=== PATIENT | male | born 1965 ===

== ENCOUNTER 2020-09-24 13:22 | Outpatient (CLI) | payer MEDICAID ==
[~2020-09-24] VITALS: Ht 188 cm; Wt 97.5 kg
--- NOTE | 2020-09-28 18:14 | Consultation ---
DATE OF CONSULTATION: 09/24/2020 CHIEF COMPLAINT: Referral for chronic GERD. HISTORY OF PRESENT ILLNESS: This is a 54-year-old male who was referred to us for chronic GERD. Apparently, not responding to aloj-fmi-ongxmxt medication. PAST MEDICAL HISTORY: 1. GERD. 2. Depression. 3. Gastritis. 4. Hiatal hernia. 5. Left knee pain. PAST SURGICAL HISTORY: 1. Alan fundoplication. 2. Hernia repair. MEDICATIONS: Please see medication reconciliation list. FAMILY HISTORY: Noncontributory. SOCIAL HISTORY: The patient drinks alcohol occasionally. Denies IV drug abuse. Denies any tobacco abuse. ALLERGIES: No known allergies. REVIEW OF SYSTEMS: Positive for chronic GERD and patient had Alan fundoplication in 2016. PHYSICAL EXAMINATION: VITAL SIGNS: Temperature 96.8, blood pressure is 122/77, pulse 79, respirations 20. HEENT: Normocephalic and atraumatic. Sclerae anicteric. NECK: Supple. No evidence of obvious lymphadenopathy. CARDIOVASCULAR: Regular rate and rhythm. Plus S1, S2. LUNGS: Clear to auscultation bilaterally. ABDOMEN: Positive bowel sounds. Soft and nontender. No rebound. No guarding. No peritoneal sign. EXTREMITIES: No cyanosis, no clubbing, no edema. ASSESSMENT AND PLAN: This is a 54-year-old male with history of Alan fundoplication, now has recurrent symptoms of GERD. The patient needs endoscopy to see if intact. We will schedule him as soon as authorization is obtained. The patient also needs a colonoscopy which we will discuss in the next visit. Gurpreet Machado M.D. DR: Vee JOB#: [id number] CC:
== END 2020-09-24 14:36 | disposition home or self-care (01) ==
LOC: PAN 13:22
DX: K21.9 Gastro-esophageal reflux disease without esophagitis (principal)
CPT/HCPCS: 99203